=== PATIENT | male | born 1965 | race Caucasian/White ===

== ENCOUNTER → 2017-10-10 | Outpatient (CLI) | payer MEDICARE, OTHER ==
--- NOTE | 2017-10-11 16:53 | NM ---
EXAMINATION TYPE: NM WBC limited DATE OF EXAM: 10/11/2017 COMPARISON: NONE HISTORY: 52-year-old male with nonpressure ulcer left foot, lateral aspect great toe and the metatars als of the second and third digits. Patient with amputation of all toes on the right foot. Currently on antibiotics for 2 to 3 weeks. TECHNIQUE: Following administration of 25.5 mCi Tc99m Ceretec. Images obtained 4 hour(s) and 24 catherine r(s) post injection. Imaging performed of the bilateral distal lower extremities. FINDINGS: There is very minimal generalized asymmetric increased uptake throughout the distal left lower extrem ity without any focal abnormal tracer accumulation. Forefoot amputation on the right is noted. IMPRESSION: Very minimal asymmetric increased activity throughout the left foot suggests some generalized low-gra de inflammation. No focal abnormal activity seen to suggest a focal infection.
== END | disposition home or self-care (01) ==
LOC: RADNMMAIN 06:21
PROVIDERS: ATTEND Physician Assistant
DX: R93.7 Abnormal findings on diagnostic imaging of other parts of musculoskeletal system (principal); L97.521 Non-pressure chronic ulcer of other part of left foot limited to breakdown of skin
CPT/HCPCS: 78805; A9569

== ENCOUNTER → 2018-04-24 | Outpatient (CLI) | payer MEDICARE, OTHER ==
--- NOTE | 2018-04-24 13:52 | US ---
EXAMINATION TYPE: US venous doppler duplex LE LT DATE OF EXAM: 04/24/2018 1:31 PM COMPARISON: NONE CLINICAL HISTORY: R60.9 EDEMA. SIDE PERFORMED: Left TECHNIQUE: The lower extremity deep venous system is examined utilizing real time linear array sonog paramjit with graded compression, doppler sonography and color-flow sonography. VESSELS IMAGED: External Iliac Vein (EIV) Common Femoral Vein Deep Femoral Vein Greater Saphenous Vein * Femoral Vein Popliteal Vein Small Saphenous Vein * Proximal Calf Veins (* superficial vessels) Left Leg: Negative for DVT IMPRESSION: No evidence for DVT at this time.
== END | disposition home or self-care (01) ==
LOC: RADUSWWP 13:05
PROVIDERS: ATTEND Family Medicine
DX: R60.9 Edema, unspecified (principal)

== ENCOUNTER → 2021-09-27 | Outpatient (CLI) | payer MEDICARE, OTHER ==
--- NOTE | 2021-09-27 11:04 | P.STRESS ---
- Stress Test Note Stress Test Results/Findings: Exam Performed: NM stress lexiscan cardiolite Exam Date: 09/27/21 Reason for Exam: ATYPICAL ANGINA Height: 6 ft Weight: 111.13 kg Protocol: LEXISCAN CARDIOLITE Stage: NA Duration of Exercise: NA Resting Heart Rate: 90 Resting Blood Pressure: 126/74 Maximum Achieved Heart Rate: 100 Maximum Achieved Blood Pressure: 126/74 85% PMHR: 139 100% PMHR: 163 METS: NA Technologist Comment: Stress Test Results/Findings: This is a 55-year-old gentleman with history of hypertension, diabetes and hypercholesterolemia being evaluated cardiac status. Stress data: Baseline EKG showed sinus rhythm with normal [place] interval and QRS duration with poor R-wave progression in anterior leads. Blood pressure at rest is 126/74 with pulse rate of 90. A standard dose of Lexiscan was infused. EKGs taken during and after infusion did not reveal any change of ischemia. Patient did not have any symptoms. Final impression: #1. Negative Lexiscan stress test #2. Report on the necessary images to be provided by the radiologist.
--- NOTE | 2021-09-27 11:44 | NM ---
EXAMINATION TYPE: NM stress lexiscan cardiolite DATE OF EXAM: 09/27/2021 COMPARISON: NONE HISTORY: History of hypertension and diabetes with chest pain. Atypical angina. TECHNIQUE: After the intravenous administration of 9.6 mCi Tc 99m Sestamibi - Cardiolite resting SPE CT images acquired 70 minutes post injection. The patient received 0.4mg Lexiscan, 24 mCi Tc 99m Sestamibi - Stress images obtained 65 minutes post injection FINDINGS: Review of stress and rest SPECT images demonstrates no distinct perfusion abnormality. Gated analysi s shows normal wall motion with an estimated left ventricular ejection fraction of 66 %. IMPRESSION: No scintigraphic evidence for reversible ischemia.
== END | disposition home or self-care (01) ==
LOC: RADNMMAIN 08:16
PROVIDERS: ATTEND Family Medicine
DX: I20.8 Other forms of angina pectoris (principal)
CPT/HCPCS: 93017; 78452; A9500

== ENCOUNTER → 2024-11-13 | Outpatient (CLI) | payer MEDICARE, OTHER ==
[2024-11-13 10:09] LABS: African American GFR (CKD) >90 (>60 ml/min/1.73 sqM); Blood Urea Nitrogen 18 mg/dL (9-20); Non-African American GFR(CKD) >90 (>60 ml/min/1.73 sqM)
--- NOTE | 2024-11-13 14:06 | CT ---
EXAMINATION TYPE: CT foot RT w con CT DLP: 301 mGycm, Automated exposure control for dose reduction was used. DATE OF EXAM: 11/13/2024 11:40 AM COMPARISON: None CLINICAL INDICATION:Male, 59 years old with history of M86.9 OSTEOMYELITIS; PHH, osteomyelitis, ulcer on bottom of right foot x 4 years TECHNIQUE: Axial images were obtained of the right foot. The uneventful administration of 100 mL of I sovue-370 intravenously. Additional coronal and sagittal reformatted images and soft tissue and bone window were obtained for review. 3-D reconstruction was created on a separate workstation. FINDINGS: Diffuse subcutaneous edema. Most pronounced involving the forefoot. No acute fracture or di slocation. Large ulceration involving the plantar aspect of the mid to forefoot measuring 3.4 x 3.3 c m. There is associated soft tissue thickening. No discrete organized fluid collection identified. Pos tsurgical changes from amputation of all 5 digits at their proximal metatarsal shafts. No definitive osseous erosion. Degenerative changes of the ankle joint posteriorly. Moderate size plantar calcaneal enthesophyte. Mild degenerative changes of the midfoot. No radiopaque foreign body. Vascular scleros is. IMPRESSION: 1. Postsurgical changes from amputation involving all 5 digits at the proximal metatarsal shafts. 2. No acute fracture or dislocation. 3. Diffuse subcutaneous edema with large ulceration along the plantar aspect of the mid to forefoot. No definitive organized fluid collection to suggest abscess. No evidence of osseous erosion to sugge st osteomyelitis. [facility], , 11/13/2024 2:04 PM
== END | disposition home or self-care (01) ==
LOC: RADCTMAIN 09:19
PROVIDERS: ATTEND Surgery Vascular Surgery
DX: L97.519 Non-pressure chronic ulcer of other part of right foot with unspecified severity (principal); M86.9 Osteomyelitis, unspecified; Z89.421 Acquired absence of other right toe(s); Z98.890 Other specified postprocedural states
CPT/HCPCS: 82565; 84520; 73701; Q9967